=== PATIENT | male | born 1950 | race African-American/Black ===

== ENCOUNTER 2018-04-08 12:40 | Outpatient (CLI) | payer MEDICARE | END 2018-04-08 12:41 | disposition home or self-care (01) | LOC: BICULT 12:40 | PROVIDERS: ATTEND Urology | DX: N40.1 Benign prostatic hyperplasia with lower urinary tract symptoms (principal); R39.14 Feeling of incomplete bladder emptying; Z87.440 Personal history of urinary (tract) infections | CPT/HCPCS: 76770 ==

== ENCOUNTER 2018-04-24 12:48 | Outpatient (CLI) | payer MEDICARE ==
[2018-04-24 14:25] LABS: Bilirubin Negative (Negative); Blood, Urine Small (Negative); Clarity CLEAR (Clear); Glucose, Urine (Dipstick) Negative (Negative); Leukocyte Negative (Negative); Nitrite Negative (Negative); Protein, Urine (Dipstick) Negative (Neg-Trace); Specific Gravity, Urine 1.011 (1.002-1.036)
[2018-04-24 14:25] LABS: Hemoglobin 15.7 g/dL (14.0-18.0); Mean Corpuscular Hemoglobin 30.4 pg (27.0-31.0); Mean Platelet Volume 7.7 fL (7.4-10.4); Platelet Count 217 thou/uL (130-400); RBC Distribution Width 12.6 % (11.5-14.5); Red Blood Cell (RBC) Count 5.16 mill/uL (4.70-6.10); White Blood Cell (WBC) Count 6.1 thou/uL (4.8-10.8)
[2018-04-24 14:28] LABS: Bacteria/HPF None Seen HPF (None Seen); Hyaline Casts/LPF 0-3 HYALINE CAST LPF (0-3 Hyaline); Pathc Cast-AUWi Flag 0.14 (0-2.49); Squamous Epithelial None Seen HPF (0-3); WBC/HPF 0-3 HPF (0-3)
[2018-04-24 14:34] LABS: PTT 31.5 SEC (22.9-36.1); Prothrombin Time 13.5 SEC (12.0-14.7)
--- NOTE | 2018-04-24 14:35 | RAD ---
TWO VIEWS CHEST: HISTORY: Preoperative exam. COMPARISON: None. FINDINGS: Slight elongation of the aorta. Normal cardiac silhouette. The pulmonary vessels and hilum are norm al. Costophrenic angles are clear. Hyperinflation, without consolidation or mass. No pneumothorax or osseous abnormalities. IMPRESSION: No acute cardiopulmonary process. POS: [facility]
[2018-04-24 14:58] LABS: Anion Gap 13 mmol/L (10-20); BUN (Urea Nitrogen) 7 mg/dL (8.4-25.7); Calc. Creatinine Clearance 0 mL/min (70-130); Calcium 9.7 mg/dL (7.8-10.44); Carbon Dioxide 27 mmol/L (23-31); Chloride 105 mmol/L (98-107); Estimated GFR-MDRD Greater than 90; Glucose 89 mg/dL (80-115); Potassium 4.4 mmol/L (3.5-5.1); Sodium 141 mmol/L (136-145)
== END 2018-04-24 12:49 | disposition home or self-care (01) ==
LOC: LABBT 12:48
PROVIDERS: ATTEND Urology
DX: Z01.818 Encounter for other preprocedural examination (principal); N40.0 Benign prostatic hyperplasia without lower urinary tract symptoms
CPT/HCPCS: 71046; 80048; 81001; 85027; 85610; 85730; 86850; 86900; 86901; 87086; 93005; 93010

== ENCOUNTER 2018-04-29 08:13 | Observation (INO) | payer MEDICARE, OTHER ==
[2018-04-24 13:29] VITALS: BMI 28.5
[2018-04-29] MEDS ORDERED: Iothalamate Meglumine 60% 50 ML VIAL FS ONE (08:29)
[2018-04-29] MEDS ORDERED: Fentanyl 250 MCG/5 ML VIAL ONE (09:32)
[2018-04-29] MEDS ORDERED: Levofloxacin 500 mg/D5W 100 ml Premix Bag ONE (09:50)
[2018-04-29] MEDS ORDERED: Bisacodyl 10 MG SUPP PR PRN (12:53)
[2018-04-29] MEDS ORDERED: Morphine 4 MG/ML Carpuject IVP PRN (12:53)
[2018-04-29] MEDS ORDERED: HYDROcodone/Acetaminophen 7.5/325 mg Tablet PO PRN ×2 (12:53)
[2018-04-29] MEDS ORDERED: Oxybutynin 5 MG TAB PO PRN (12:53)
[2018-04-29] MEDS ORDERED: Mag-Al 1200 mg/1200 mg/30 ML UDCUP PO PRN (12:53)
[2018-04-29] MEDS ORDERED: hydrALAZINE 20 MG/ML VIAL SLOW IVP PRN ×2 (12:53)
[2018-04-29] MEDS ORDERED: Zolpidem Tartrate 5 MG TAB PO PRN (12:53)
[2018-04-29] MEDS ORDERED: diphenhydrAMINE 50 MG/ML VIAL IVP PRN (12:53)
--- NOTE | 2018-04-29 13:12 | OP ---
PREOPERATIVE DIAGNOSES: 1. Trilobar hyperplasia of the prostate. 2. History of recurrent urinary tract infection. POSTOPERATIVE DIAGNOSES: 1. Trilobar hyperplasia of the prostate. 2. History of recurrent urinary tract infection. PROCEDURES: Cystoscopy, bilateral catheterization of the ureter with ureteral stents(removed at the end of the procedure), transurethral resection of prostate. SURGEON: Torrie Baxter D.O. ANESTHESIA: General. COMPLICATIONS: None apparent. DISPOSITION: To recovery room in stable condition. DRAINS: 22 [place] three-way Marks catheter with 40 mL insufflated into the balloon on gravity with CBI light pink to clear. SPECIMEN: TUR of the prostate. INTRAOPERATIVE FINDINGS: 1. Trilobar hyperplasia of the prostate, severe obstructing. 2. Small bladder diverticulum at the posterior wall approximately 1 cm wide os. 3. No evidence of bladder stones. INDICATIONS FOR PROCEDURE AND HISTORY: Mr. Fishman is a 67-year-old male with history of trilobar hyperplasia of the prostate, history of elevated PSA, status post prostate biopsy negative for malignancy. His initial volume is estimated to be 112 grams and there was a large intravesical median lobe in which the ureteral orifices were difficult to identify with flexible cystoscope. He presents today for transurethral resection of prostate with full understanding that it was most likely a staged intervention given large prostate volume. Moreover, as I was unable to identify his left ureteral orifice and local cystoscopy, he was informed regarding ureteral catheterization if able during the procedure. Risks and complications including , but not limited to, bleeding, pain, infection, stricture formation, injury to bladder, urethra, ureteral orifice, recurrent retention, stricture formation, clot retention, urinary incontinence, was reviewed with him in detail. Moreover , general risk factors such as PE, DVT, perioperative morbidity, mortality, MD and CVA was reviewed. All questions were answered to his satisfaction and he desired to proceed. We discussed options of suprapubic prostatectomy; however, he favor less invasive procedure with full understanding that it may require staged intervention and desires to proceed with TURP. DESCRIPTION OF PROCEDURE: After an informed consent is signed, patient is taken to the operating room, placed in a dorsal lithotomy position with the genital area prepped and draped in the usual surgical sterile fashion. Bilateral GEMINI hose, SCDs, and broad-spectrum antibiotics were provided. Using a 21-Citizen [place] cystoscope, we passed a cystoscope under direct visualization again demonstrating trilobar hyperplasia with a large intravesical median lobe. The bladder was entered which demonstrated no evidence of bladder stones or lesions. A small posterior wall diverticulum was noted with large os, approximately 1 cm in size. There was no evidence of bladder tumors or stones within the bladder diverticulum. Using a 30-degree lens, we were able to identify the ureteral orifices, approximately 3-4 mm of the reflection of the intravesical median lobe. This did require manipulation of the median lobe with a rigid cystoscope to visualize the right UO. We were able to pass a 0.35 sensor wire and subsequently passed a 6 x 24 stent into the right collecting system. Left UO was similarly identified manipulating the median lobe, with the rigid cystoscope and was able to find left UO and subsequently passed a wire and a 6 x 24 double-J ureteral stent was passed. With the UO secured and kept out of harm's way, we then passed a 26-Citizen [place] resectoscope with a visual obturator. This was passed to the level of the bladder and we did switch out to a gyrus prostate bipolar loop. The median lobe was resected first. His median lobe was such that the midline median lobe component was not a significant, the median lobe was most prominent at 5 and 7 o'clock position. I did take a resection down the middle at 12 o'clock position. With the 1st swipe , there was undermining of the trigone very superficially. Therefore, we resected the median lobe lateral to this in a systematic matter taking the benign adenoma to open up the bladder neck. We then subsequently began resecting the lateral lobes in a classic Amelia fashion. I did not aggressively resect down the midline as there was undermining of the trigone. A digital rectal exam subsequently was performed demonstrating no evidence of rectal injury. The UO's were again kept out of harm's way with bilateral ureteral stents. We resected the prostatic urethra in a classic Amelia fashion and again conservative resection down the midline. At the end of the procedure , bladder neck was wide open and good hemostasis was obtained. We Ellick evaluated all prostatic chips. With good hemostasis, we then passed a cystoscope and retrieved bilateral ureteral stents. As there was undermining of the trigone, we passed a 0.35 Super Stiff wire to the level of the bladder and a 22 [place] three-way Marks catheter was passed over the guidewire assist to prevent trauma to the bladder neck. A 40 mL was insufflated with sterile water and placed with StatLock x2 and CBI was initiated and light pink to clear output. We will monitor the patient overnight with continuous bladder irrigation, plan is to hold CBI tomorrow morning. If clear, he will be discharged with an indwelling Marks catheter for a voiding trial next week. MTDD
[2018-04-29 13:34] LABS: #Eosinphils 0.2 thou/uL (0.0-0.7); #Lymphocytes 1.4 thou/uL (1.20-3.40); #Monocytes 0.2 thou/uL (0.11-0.59); #Neutrophils 1.8 thou/uL (1.40-6.50); %Basophils 0.7 % (0.0-1.0); %Eosinophils 5.8 % (0.0-10.0); %Lymphocytes 38.3 % (21.0-51.0); %Neutrophils 50.3 % (42.0-75.0); Hemoglobin 13.3 g/dL (14.0-18.0); Mean Corpuscular HGB CONC 32.8 g/dL (32.0-36.0); Mean Corpuscular Hemoglobin 30.3 pg (27.0-31.0); Mean Corpuscular Volume 92.4 fl (80.0-94.0); Mean Platelet Volume 7.4 fL (7.4-10.4); Platelet Count 183 thou/uL (130-400); RBC Distribution Width 12.5 % (11.5-14.5); Red Blood Cell (RBC) Count 4.39 mill/uL (4.70-6.10); White Blood Cell (WBC) Count 3.6 thou/uL (4.8-10.8)
[2018-04-29] MEDS ORDERED: PROPOFOL 200 MG/20 ML VIAL ONE (13:42)
[2018-04-29] MEDS ORDERED: Ondansetron PF 4 MG/2 ML Vial ONE (13:42)
[2018-04-29] MEDS ORDERED: Glycopyrrolate 0.2 MG/ML 5 ML SYRINGE ONE (13:42)
[2018-04-29] MEDS ORDERED: ePHEDrine/0.9% NaCl/PF SYRINGE 50 mg/10 ml ONE (13:42)
[2018-04-29] MEDS ORDERED: Dexamethasone 20 MG/5 ML VIAL ONE (13:42)
[2018-04-29] MEDS ORDERED: Lidocaine 1% PF 5 ML VIAL ONE (13:42)
[2018-04-29] MEDS ORDERED: cefTRIAXone\\ROCEPHIN 1 GM VIAL ONE (13:51)
[2018-04-29] MEDS ORDERED: Sodium Chloride 0.9% 100 ML ONE (13:52)
[2018-04-29 14:07] LABS: Anion Gap 7 mmol/L (10-20); BUN (Urea Nitrogen) 8 mg/dL (8.4-25.7); Calc. Creatinine Clearance 95 mL/min (70-130); Carbon Dioxide 24 mmol/L (23-31); Chloride 113 mmol/L (98-107); Estimated GFR-MDRD Greater than 90; Glucose 92 mg/dL (80-115); Potassium 3.9 mmol/L (3.5-5.1); Sodium 140 mmol/L (136-145)
--- NOTE | 2018-04-29 14:35 | RAD ---
RETROGRADE PYELOGRAM: Three fluoroscopic images presented from the OR. INDICATION: Imaging during cystoscopy procedure and stent placement. FINDINGS: Final image shows placement of bilateral double pigtail ureteral stents. POS: [facility]
[2018-04-29] MEDS: cefTRIAXone\\ROCEPHIN 1 GM in Sodium Chloride 0.9% 100 ML IVPB SCH (15:16)
[2018-04-29] MEDS: Sodium Chloride 0.9% 1,000 ML IV SCH ×2 (17:22→22:40)
--- NOTE | 2018-04-29 18:04 | CON ---
DATE OF CONSULTATION: 04/29/2018 REASON FOR CONSULTATION: Bradycardia. REFERRING PROVIDER: Torrie Baxter D.O. HISTORY OF PRESENT ILLNESS: Mr. Fishman is a 67-year-old gentleman with a doctor Chan Joseph. He recen tly underwent TURP. He was found to have a heart rate in the mid 40s. He is completely asymptomatic . No dizziness, lightheadedness, syncope or presyncope present. He is currently on Coreg 6.25 one p .o. b.i.d. PAST MEDICAL HISTORY: PVD status post revascularization, hypertension, hyperlipidemia, BPH, peptic u lcer disease, recent TURP. FAMILY HISTORY: Positive for CAD. SOCIAL HISTORY: He is currently . No current tobacco use or alcohol use. CURRENT HOME MEDICATIONS: Include atorvastatin, Prilosec, sildenafil, Flomax, Avodart, Celebrex, car vedilol, nifedipine. REVIEW OF SYSTEMS: A 10-point systems reviewed as above, otherwise negative. PHYSICAL EXAMINATION: GENERAL: Patient is a pleasant male who is in no acute distress. The patient appears his stated age . VITAL SIGNS: Blood pressure 157/68, pulse 62, temperature 97.6. NEUROLOGIC: The patient is alert and oriented times 3 with no focal neurologic deficits. HEENT: Sclerae without icterus. Mouth has moist mucous membranes with normal pallor. NECK: No JVD. Carotid upstroke brisk. No bruits bilaterally. LUNGS: Clear to auscultation with unlabored respirations. BACK: No scoliosis or kyphosis. CARDIAC: Regular rate and rhythm with normal S1 and S2. No S3 or S4 noted. No significant rubs, mu rmurs, thrills, or gallops noted throughout the precordium. PMI is not displaced. There is no basilio ternal heave. ABDOMEN: Soft, nontender, nondistended. No peritoneal signs present. No hepatosplenomegaly. No ab normal striae. EXTREMITIES: 2+ femoral and 2+ dorsalis pedis pulses. No cyanosis, clubbing, or edema. SKIN: No gross abnormalities. PERTINENT LABORATORY DATA: Hemoglobin 13.3, creatinine 0.76. IMPRESSION: 1. Bradycardia. 2. Status post transurethral resection of prostate. RECOMMENDATIONS: At this point, we will hold carvedilol. We will reevaluate in a.m. May need to go home on no Coreg versus continue low dose Coreg or just Coreg in p.m. Otherwise, I have no further recommendations. If heart rate are stable, it will be okay from my standpoint to discharge home.
[2018-04-29] MEDS: Famotidine 20 MG TAB PO SCH (20:09)
[2018-04-29] MEDS: Docusate 100 MG CAP PO SCH (20:09)
[2018-04-29] MEDS ORDERED: Famotidine/PF 20 mg/2ml Vial SLOW IVP SCH (21:00)
[2018-04-29] MEDS ORDERED: Carvedilol 3.125 MG TAB PO SCH (21:00)
[2018-04-29] MEDS ORDERED: Atorvastatin Calcium 40 MG TAB PO SCH (21:00)
[2018-04-30 04:07] LABS: #Lymphocytes 1.2 thou/uL (1.20-3.40); #Monocytes 0.6 thou/uL (0.11-0.59); #Neutrophils 9.8 thou/uL (1.40-6.50); %Basophils 0.1 % (0.0-1.0); %Eosinophils 0.1 % (0.0-10.0); %Lymphocytes 10.4 % (21.0-51.0); %Monocytes 5.4 % (0.0-10.0); Hemoglobin 13.6 g/dL (14.0-18.0); Mean Corpuscular HGB CONC 32.3 g/dL (32.0-36.0); Mean Platelet Volume 7.7 fL (7.4-10.4); Platelet Count 196 thou/uL (130-400); RBC Distribution Width 12.8 % (11.5-14.5); Red Blood Cell (RBC) Count 4.55 mill/uL (4.70-6.10); White Blood Cell (WBC) Count 11.7 thou/uL (4.8-10.8)
[2018-04-30 04:21] LABS: Anion Gap 9 mmol/L (10-20); BUN (Urea Nitrogen) 10 mg/dL (8.4-25.7); Calc. Creatinine Clearance 94 mL/min (70-130); Calcium 8.4 mg/dL (7.8-10.44); Carbon Dioxide 23 mmol/L (23-31); Chloride 112 mmol/L (98-107); Estimated GFR-MDRD Greater than 90; Glucose 95 mg/dL (80-115); Potassium 3.9 mmol/L (3.5-5.1); Sodium 140 mmol/L (136-145)
--- NOTE | 2018-04-30 08:11 | PRG ---
DATE OF SERVICE: 04/30/2018 SUBJECTIVE: The patient without complaints, doing well. PHYSICAL EXAMINATION: VITAL SIGNS: Afebrile, heart rate last night 48/56, currently 60/55 with lower dose of carvedilol. Denies chest pain, shortness of breath. ABDOMEN: Soft, nontender, nondistended. GENITOURINARY: CBI was held at 4:00 a.m., with pink crescencio tinged urine. CBI tubing flushed with immediate clearing. Therefore, CBI was plugged attached to leg bag. EXTREMITIES: No cyanosis, clubbing, edema. LABORATORY DATA: White count 11.7, hemoglobin stable at 13.6, platelet 196. Sodium 140, potassium 3.9, BUN 10, creatinine 0.77. Pathology pending. IMPRESSION AND PLAN: 1. Mr. Fishman is a 67-year-old male with history of trilobar hyperplasia of the prostate with severe LUTS, postop day #1 status post TURP. 2. Postop bradycardia, Cardiology consultation was obtained last night. Cardiology consultation appreciated, Coreg may need to be adjusted due to bradycardia. Cardiology input regarding medical regimen for Coreg at home. Patient is asymptomatic. I will monitor the patient today off CBI, if urine is relatively clear, will discharge home with gravity leg bag. [facility]
--- NOTE | 2018-04-30 08:35 | PDOC.CTH ---
Cardiology Progress Note - Subjective The pt seen and examined. No overnight events. No cardiac complaints. - Objective Vital Signs Temp Pulse Resp BP Pulse Ox 04/30/18 07:15 97.8 F 83 20 144/85 H 98 04/30/18 04:56 98.4 F 55 L 16 153/84 H 96 04/29/18 23:35 97.5 F L 60 16 156/90 H 96 Weight 161 lb 04/29/18 04/30/18 05/01/18 06:59 06:59 06:59 Intake Total 850 Output Total 1000 1625 Balance -150 -1625 - Physical Examination General/Neuro: alert & oriented x3 Neck: no JVD present Lungs: CTA Heart: RRR Abdomen: soft Extremities: other: (No edema) - Labs Result Diagrams: 04/30/18 03:47 04/30/18 03:47 - Assessment/Plan 1. Bradycardia - stable in this AM; cont. to monitor and resume with low dose of Coreg if his HR > 60 at discharge. 2. S/p TURP on 04/29/18 - managed by urologist 3. HTN - Nifedipine 60mg was resumed from this AM; cont. to monitor 4. 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 - stable; cont. to monitor 5. Hyperlipidemia - on statin 6. Peptic ulcer disease - on Pepcid MAR reviewed * From Cardiac standpoint, the pt is stable to d/c. Will resume Coreg with low dose (3.125mg BID) if his HR > 60 at discharge Review of Systems - Review of Systems Constitutional: reports: no symptoms reported EENTM: reports: no symptoms reported Respiratory: reports: no symptoms reported Cardiac (ROS): reports: no symptoms reported ABD/GI: reports: no symptoms reported : reports: no symptoms reported Musculoskeletal: reports: no symptoms reported
[2018-04-30] MEDS ORDERED: Tamsulosin HCl 0.4 MG CAP PO SCH ×2 (09:00)
[2018-04-30] MEDS ORDERED: Dutasteride 0.5 MG CAP PO SCH (09:00)
[2018-04-30] MEDS ORDERED: NIFEdipine XL 60 MG TAB PO SCH (09:00)
[2018-04-30] MEDS: Docusate 100 MG CAP PO SCH (09:00)
[2018-04-30] MEDS: Famotidine 20 MG TAB PO SCH (09:01)
[2018-04-30] MEDS ORDERED: Carvedilol 3.125 MG TAB PO SCH (09:30)
[2018-04-30] MEDS: cefTRIAXone\\ROCEPHIN 1 GM in Sodium Chloride 0.9% 100 ML IVPB SCH (13:14)
[2018-04-30 16:22] VITALS: BP 134/89; TEMP 98.1
--- NOTE | 2018-05-01 04:17 | DIS ---
DATE OF ADMISSION: 04/29/2018 DATE OF DISCHARGE: 04/30/2018 CONSULT: Cardiology for bradycardia. CONDITION: Stable. DISPOSITION: To home with excellent self-care. DISCHARGE INSTRUCTIONS: The patient discharged with indwelling Marks catheter to leg bag, 20-[place] 3-way with CBI port plugged 30 mL in the balloon. DISCHARGE MEDICATIONS: Include ciprofloxacin until followup appointment, [facility] , [place] 5/325. He is to resume his home medications. No aspirin and ibuprofen products, his Coreg is decreased from b.i.d. to q. day until followup with Cardiology BRIEF HOSPITAL COURSE: Mr. Fishman is a 67-year-old male with trilobar hyperplasia of the prostate with severe lower urinary tract symptoms, status post TURP. As he had very large intravesical median lobe, he had bilateral ureteral stents prior to procedure was subsequently removed. His lab has been stable with H&H improved from preop 13.3 to 13.6 postop. Creatinine stable at 0.77. His CBI was held this morning due to crescencio pink-tinged urine. This remained stable; however, he did have some hematuria with ambulation, which resolved with subsequent observation. On afternoon rounds, his urine output is crescencio pink tinged with immediate clearing and clear in the tubing. I did flush the catheter with no clots. He did have some blood around the catheter with a bowel movement, which is anticipated. He states that there was no blood in the stool. Bowel movements were regular. Disposition to home. Urology followup appointment next for a voiding trial, catheter removal. Recommend Cardiology appointment in 1 week to follow his bradycardia. His heart rate has been stable, variable from 80-87. Coreg has been decreased from b.i.d. to q. day due to bradycardia,per cardiology recommendations. MTDD
== END 2018-04-30 18:42 | disposition home or self-care (01) ==
LOC: SDC 08:13 → SURG A 14:31
PROVIDERS: ADMIT Urology; ATTEND Urology
PROC: 0VT08ZZ Resection of Prostate, Via Natural or Artificial Opening Endoscopic (ICD-10-PCS; principal; 2018-04-30)
PROC: 0TP97DZ Removal of Intraluminal Device from Ureter, Via Natural or Artificial Opening (ICD-10-PCS; 2018-04-30)
DX: N40.1 Benign prostatic hyperplasia with lower urinary tract symptoms (principal); R35.1 Nocturia; R39.11 Hesitancy of micturition; N52.9 Male erectile dysfunction, unspecified; R39.14 Feeling of incomplete bladder emptying; M54.16 Radiculopathy, lumbar region; I10 Essential (primary) hypertension; E78.00 Pure hypercholesterolemia, unspecified; E78.5 Hyperlipidemia, unspecified; K27.9 Peptic ulcer, site unspecified, unspecified as acute or chronic, without hemorrhage or perforation; Z80.42 Family history of malignant neoplasm of prostate; Z79.899 Other long term (current) drug therapy; Z95.820 Peripheral vascular angioplasty status with implants and grafts
CPT/HCPCS: 52601; 74420; 80048 ×2; 85025 ×2; 88305; 96361 ×2; 96374; 97139; C1758; C1769; G0378; Q9968; 36415; J0696; J1100; J1956; J2001; J2405; J2704; J3010; J7050; Q9961

== ENCOUNTER 2022-08-30 08:18 | Outpatient (CLI) | payer MEDICARE | END 2022-08-30 08:19 | disposition home or self-care (01) | LOC: ULT 08:18 | PROVIDERS: ATTEND Family Medicine | DX: R22.41 Localized swelling, mass and lump, right lower limb (principal) | CPT/HCPCS: 76999 ==

== ENCOUNTER 2023-07-12 13:55 | Emergency (ER) | payer MEDICARE ==
[2023-07-12] MEDS ORDERED: Meclizine HCl 25 MG TAB ONE (14:41)
[2023-07-12 14:50] LABS: #Basophils 0.1 thou/uL (0.0-0.2); #Eosinphils 0.4 thou/uL (0.0-0.7); #Monocytes 0.4 thou/uL (0.11-0.59); %Basophils 1.1 % (0.0-1.0); %Eosinophils 5.9 % (0.0-10.0); %Lymphocytes 37.3 % (21.0-51.0); %Monocytes 7.2 % (0.0-10.0); %Neutrophils 48.3 % (42.0-75.0); Hematocrit 46.5 % (42.0-52.0); Hemoglobin 15.5 g/dL (14.0-18.0); Mean Corpuscular HGB CONC 33.3 g/dL (32.0-36.0); Mean Corpuscular Hemoglobin 29.9 pg (27.0-31.0); Mean Corpuscular Volume 89.8 fl (78.0-98.0); Mean Platelet Volume 9.9 fL (7.4-10.4); Platelet Count 233 10x3/uL (130-400); RBC Distribution Width 13.2 % (11.5-14.5); Red Blood Cell (RBC) Count 5.18 mill/uL (4.70-6.10); White Blood Cell (WBC) Count 6.1 10x3/uL (4.8-10.8)
[2023-07-12 15:19] LABS: Phosphorus 3.3 mg/dL (2.3-4.7)
[2023-07-12 15:36] LABS: ALT (SGPT) 21 U/L (8-55); AST (SGOT) 21 U/L (5-34); Albumin 4.5 g/dL (3.4-4.8); Alkaline Phosphatase 76 U/L (40-110); Anion Gap 14 mmol/L (10-20); BUN (Urea Nitrogen) 13 mg/dL (8.4-25.7); Bilirubin, Total 0.9 mg/dL (0.2-1.2); Calc. Creatinine Clearance 0 mL/min (70-130); Calcium 9.5 mg/dL (7.8-10.44); Carbon Dioxide 25 mmol/L (23-31); Chloride 104 mmol/L (98-107); Estimated GFR 72; Globulin 2.4 g/dL (2.4-3.5); Glucose 101 mg/dL (83-110); Magnesium 2.2 mg/dL (1.6-2.6); Potassium 3.4 mmol/L (3.5-5.1); Protein, Total 6.9 g/dL (5.8-8.1); Sodium 140 mmol/L (136-145)
== END 2023-07-12 16:29 | disposition home or self-care (01) ==
LOC: ERS 13:55
DX: Z71.1 Person with feared health complaint in whom no diagnosis is made (principal); E78.5 Hyperlipidemia, unspecified; I10 Essential (primary) hypertension; Z87.891 Personal history of nicotine dependence; Z79.899 Other long term (current) drug therapy; Z79.82 Long term (current) use of aspirin
CPT/HCPCS: 36415; 80053; 83735; 83880; 84100; 85025; 93005

== ENCOUNTER 2023-09-03 14:02 | Observation (INO) | payer MEDICARE ==
[2023-09-03 16:03] VITALS: BMI 25.9
[2023-09-03] MEDS ORDERED: Senokot S 8.6-50 MG TAB PO PRN (16:10)
[2023-09-03] MEDS ORDERED: HYDROcodone/Acetaminophen 5/325 mg Tablet PO PRN (16:10)
[2023-09-03] MEDS ORDERED: Acetaminophen 325 MG TAB PO PRN (16:10)
[2023-09-03] MEDS ORDERED: Meclizine HCl 25 MG TAB PO PRN (16:13)
[2023-09-03] MEDS ORDERED: Ondansetron PF 4 MG/2 ML Vial IVP PRN (16:20)
[2023-09-03] MEDS ORDERED: cefTRIAXone\\ROCEPHIN 1 GM in Sodium Chloride 0.9% 100 ML IVPB SCH (17:00)
[2023-09-03] MEDS: Sodium Chloride 0.9% 1,000 ML IV SCH (18:31)
[2023-09-03] MEDS ORDERED: Atorvastatin Calcium 40 MG TAB PO SCH (21:00)
[2023-09-04 06:34] LABS: #Eosinphils 0.3 thou/uL (0.0-0.7); #Monocytes 0.4 thou/uL (0.11-0.59); #Neutrophils 3.6 thou/uL (1.40-6.50); %Basophils 0.6 % (0.0-1.0); %Eosinophils 4.6 % (0.0-10.0); %Lymphocytes 31.7 % (21.0-51.0); %Monocytes 6.8 % (0.0-10.0); Hematocrit 46.5 % (42.0-52.0); Hemoglobin 15.2 g/dL (14.0-18.0); Mean Corpuscular HGB CONC 32.7 g/dL (32.0-36.0); Mean Corpuscular Hemoglobin 29.9 pg (27.0-31.0); Mean Corpuscular Volume 91.4 fl (78.0-98.0); Mean Platelet Volume 10.2 fL (7.4-10.4); Platelet Count 236 10x3/uL (130-400); RBC Distribution Width 13.9 % (11.5-14.5); Red Blood Cell (RBC) Count 5.09 mill/uL (4.70-6.10); White Blood Cell (WBC) Count 6.5 10x3/uL (4.8-10.8)
[2023-09-04 06:44] LABS: Hemoglobin A1c 5.7 % (4.0-6.0)
[2023-09-04 07:22] LABS: Anion Gap 13 mmol/L (10-20); BUN (Urea Nitrogen) 12 mg/dL (8.4-25.7); Calc. Creatinine Clearance 71 mL/min (70-130); Calcium 9.3 mg/dL (7.8-10.44); Carbon Dioxide 22 mmol/L (23-31); Cardiac Risk 3.4 (Less than 4.5); Chloride 110 mmol/L (98-107); Cholesterol 134 mg/dl (< 200 Desired); Estimated GFR 90; Glucose 93 mg/dL (83-110); HDL Cholesterol 39 mg/dL (>60 Neg Risk); LDL Cholesterol, Calculated 79 mg/dL; Potassium 3.8 mmol/L (3.5-5.1); Sodium 141 mmol/L (136-145); Triglycerides 82 mg/dL (Less than 150)
[2023-09-04] MEDS ORDERED: Lorazepam 1 MG TAB PO SCH (07:45)
[2023-09-04] MEDS ORDERED: traMADol HCl 50 MG TAB PO SCH (08:15)
[2023-09-04] MEDS: Sodium Chloride 0.9% 1,000 ML IV SCH (08:49)
[2023-09-04] MEDS ORDERED: Fish Oil 1,000 MG CAP PO SCH (09:00)
[2023-09-04] MEDS ORDERED: Lisinopril 20 MG TAB PO SCH (09:00)
[2023-09-04] MEDS ORDERED: Aspirin 81 mg Enteric Coated Tablet PO SCH (09:00)
[2023-09-04] MEDS ORDERED: NIFEdipine XL 30 MG ER.TAB PO SCH (09:00)
[2023-09-04] MEDS ORDERED: Dutasteride 0.5 MG CAP PO SCH (09:00)
[2023-09-04 12:09] VITALS: TEMP 96.7
[2023-09-04 16:56] VITALS: BP 156/91
== END 2023-09-04 16:44 | disposition home or self-care (01) ==
LOC: 2SE 15:02 → OBSVTOIN 16:12 → INTOOBSV 16:12
PROVIDERS: ADMIT Family Medicine; ATTEND Internal Medicine
DX: R42 Dizziness and giddiness (principal); E78.5 Hyperlipidemia, unspecified; I10 Essential (primary) hypertension; N39.0 Urinary tract infection, site not specified; N40.0 Benign prostatic hyperplasia without lower urinary tract symptoms; K21.9 Gastro-esophageal reflux disease without esophagitis; Z98.890 Other specified postprocedural states; Z79.899 Other long term (current) drug therapy
CPT/HCPCS: 36415; 70551; 80048; 80061; 83036; 85025; 87086; 93306; 93880; 96372; 96374; G0378; J0696; J1650; J3490; J7050